=== PATIENT | female | born 1935 | race Caucasian/White ===

== ENCOUNTER 2018-06-12 16:06 | Emergency (ER) | payer OTHER ==
--- NOTE | 2018-06-12 16:19 | EDPHY ---
H & P Time Seen by Provider: 06/12/18 16:19 HPI/ROS: CHIEF COMPLAINT: Fall and head strike HISTORY OF PRESENT ILLNESS: The patient is an anticoagulated 82 y/o with dementia female arriving with her daughter for evaluation of a fall and head strike this afternoon. Per daughter, staff described falling backwards and striking the back of her head on the ground on the patio. She did not lose consciousness per staff. She denies any pain or other complaints, but is also an unreliable historian due to her dementia. Her daughter mentions she is "agitated and speedier than normal today," which her daughter thinks could be due to a new medication (Mirtazapine) she started recently. She is oriented at baseline per daughter. No specific history obtainable from patient. REVIEW OF SYSTEMS: A ten system review of systems was performed and is negative with the exception of the items mentioned in the HPI. Past medical history: 1. Dementia/Alzheimer's disease with behavioral disturbance, depression 2. Hypertension - Lisinopril 3. Hyperlipidemia - Atorvastatin 4. Gout 5. Chronic Kidney Disease stage 3 6. TIA Past surgical history: 1. Cardiac stent - Plavix 2. 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 Daughter at bedside. DNR status. General Appearance: Alert. Vital signs reviewed. Blood pressure 150/91. Hematoma: Quarter-sized cephalohematoma right high parietal. Palpable underlying skull deformity. Overlying laceration. Eyes: Pupils equal and round, no conjunctival injection, no discharge. Anicteric. ENT, Mouth: Mucous membranes are moist, no oropharyngeal erythema or edema. Neck: No lymphadenopathy, supple. Nontender to palpation over the cervical spine in the midline. Respiratory: Lungs are clear to auscultation; no wheezes, rales, or rhonchi. Cardiovascular: Regular rate and rhythm; no murmur, rub, or gallop. Gastrointestinal: Abdomen is soft and nontender, no masses or organomegaly. Skin: Warm and dry, no rashes on exposed skin, normal color. Back: Nontender to palpation over the thoracolumbar spine. No CVAT. Extremities: No lower extremity edema, no calf tenderness or swelling. Bandaid on right hand. Neurological: Alert and oriented to person, at baseline. Moving all four extremities easily and equally. COMPA. EOMI. Facial expressions symmetric. Tongue midline. Follows simple commands inconsistently. Psychiatric: Normal affect. Constitutional: Initial Vital Signs Temperature (C) 37.3 C 06/12/18 16:06 Heart Rate 72 06/12/18 16:06 Respiratory Rate 16 06/12/18 16:06 Blood Pressure 152/91 H 06/12/18 16:06 O2 Sat (%) 95 06/12/18 16:06 O2 Delivery Mode Room Air Allergies/Adverse Reactions: No Known Allergies Allergy (Unverified 06/12/18 16:24) Home Medications: Medication Instructions Recorded Atenolol 06/12/18 Atorvastatin Calcium 06/12/18 Citalopram Hydrobromide 06/12/18 Lisinopril 06/12/18 Mirtazapine 06/12/18 Plavix 06/12/18 Vitamin D3 06/12/18 Medical Decision Making ED Course/Re-evaluation: This is an 82 y/o female with dementia who presents for evaluation of a witnessed fall and head strike this afternoon. She has no acute complaints. Right high parietal cephalohematoma palpable on exam. Plan for head CT to rule out acute intracranial injury due to Plavix use and age. Head CT shows atrophy, no acute hemorrhage. I reviewed the films. Reassessed patient and discussed findings with her and her daughter. She will be discharged home in stable condition. Daughter is comfortable with this plan. Return precautions discussed. No need for further emergency department evaluation at this time. Patient is noted to be hypertensive in the emergency department. She has a history of hypertension. Her blood pressure is followed by her primary. Differential Diagnosis: I considered a differential diagnosis of fall that includes but is not limited to intracranial hemorrhage, skull fracture, facial injury, and cervical spine injury. Departure - Departure Disposition: Home, Routine, Self-Care Clinical Impression: Fall Qualifiers: Encounter type: initial encounter Qualified Code(s): W19.XXXA - Unspecified fall, initial encounter Scalp contusion Qualifiers: Encounter type: initial encounter Qualified Code(s): S00.03XA - Contusion of scalp, initial encounter Condition: Good Instructions: Fall Prevention for Older Adults (ED), Scalp Contusion in Adults (ED) Additional Instructions: Follow up with your primary care provider as needed for unimproved symptoms. Return to the ED for worsening of condition.l Referrals: [facility] ,. [Edm Groups for Call Sched] - As per Instructions Report Scribed for: Perla Maldonado Report Scribed by: Yola Jones Date of Report: 06/12/18 Time of Report: 16:26 Physician Review and Approval Statement: 06/12/18 16:19 Portions of this note were transcribed by the medical technicians. I, Dr. Perla Maldonado, personally performed the history, physical exam, and medical decision- making; and confirmed the accuracy of the information in the transcribed note.
[2018-06-12 17:30] VITALS: BP 128/79
== END 2018-06-12 17:30 | disposition home or self-care (01) ==
DX: S00.03XA Contusion of scalp, initial encounter (principal); I12.9 Hypertensive chronic kidney disease with stage 1 through stage 4 chronic kidney disease, or unspecified chronic kidney disease; N18.3 Chronic kidney disease, stage 3 (moderate); F03.90 Unspecified dementia, unspecified severity, without behavioral disturbance, psychotic disturbance, mood disturbance, and anxiety; E78.5 Hyperlipidemia, unspecified; W19.XXXA Unspecified fall, initial encounter; Y92.129 Unspecified place in nursing home as the place of occurrence of the external cause